=== PATIENT | male | born 1970 | race Caucasian/White ===

== ENCOUNTER 2016-11-19 12:04 | Emergency (ER) | payer BC ==
[2016-11-19 12:16] VITALS: BP 144/99
--- NOTE | 2016-11-19 12:20 | EDM.PDOC ---
ED HISTORY OF PRESENT ILLNESS - General Chief Complaint: Chest Pain Stated Complaint: CHEST PAIN Time Seen by Provider: 11/19/16 12:20 Source of Information: Reports: Patient - History of Present Illness INITIAL COMMENTS - FREE TEXT/NARRATIVE: Patient reports having substernal/left chest pain x2-3 days. Reports this is worse when he takes a deep breath, hasn't noted anything to help it. Denies associated N/V or diaphoresis, did have 1 episode of diarrhea this am. Denies change in physical activity, he does not lift heavy objects as he has history of back surgery. - Related Data Allergies/ADRs: Allergies Allergy/AdvReac Type Severity Reaction Status Date / Time Penicillins Allergy Hives Verified 11/19/16 12:16 Home Meds: Home Meds Albuterol [IJD: Albuterol HFA] 1 puff INH ASDIRECTED PRN 08/16/16 [History] Past Medical History HEENT History: Reports: Other (see below) Other HEENT History: Dental complaints Cardiovascular History: Reports: Hypertension Respiratory History: Reports: Asthma Musculoskeletal History: Reports: Back pain, chronic - Past Surgical History Musculoskeletal Surgical History: Reports: Other (see below) Other Musculoskeletal Surgeries/Procedures:: Right Knee Laser Surgery, "tore my knee cap off my left knee when I was 16 and had it melissa redone". having back surgery 09/01/16 in [place] Social & Family History - Family History : Reports: Renal disease/insufficiency - Tobacco Use Smoking Status *Q: Current Every Day Smoker Years of Tobacco use: 32 Packs/Tins Daily: 1 - Caffeine Use Caffeine Use: Reports: Coffee, Soda, Tea - Alcohol Use Days Per Week of Alcohol Use: 4 Number of Drinks Per Day: 8 Total Drinks Per Week: 32 - Recreational Drug Use Recreational Drug Use: Yes Drug Use in Last 12 Months: Yes Recreational Drug Type: Reports: Marijuana/Hashish Recreational Drug Use Frequency: Binges ED ROS GENERAL - Review of Systems Review Of Systems: See Below Constitutional: Denies: fever, chills, weakness, fatigue, diaphoresis Respiratory: Reports: Cough, Sputum. Denies: Shortness of Breath, Wheezing, Pleuritic Chest Pain, Hemoptysis Cardiovascular: Reports: Chest pain, Blood pressure problem, Dyspnea on exertion. Denies: Edema, Lightheadedness, Orthopnea, Palpitations, Syncope GI/Abdominal: Reports: Diarrhea. Denies: Abdominal pain, Decreased appetite, Nausea, Vomiting : Reports: no symptoms Musculoskeletal: Reports: other (chest wall pain) Skin: Reports: no symptoms Neurological: Reports: No Symptoms ED EXAM, GENERAL - Physical Exam Exam: See Below Exam Limited By: No limitations General Appearance: alert, WD/WN, no apparent distress Ears: normal external exam, normal canal (Excess cerumen), normal TMs Throat/Mouth: Normal inspection, Normal oropharynx Respiratory/Chest: no respiratory distress, decreased breath sounds (Bilateral bases), other (Chest wall tenderness to left mid-chest) Cardiovascular: normal peripheral pulses, regular rate, rhythm, no murmur GI/Abdominal: normal bowel sounds, soft, non tender Psychiatric: normal affect, normal mood Skin Exam: Warm, Dry, Intact, Normal color EKG INTERPRETATION EKG Date: 11/19/16 Time: 12:18 Rhythm: NSR P-wave: present EKG Interpretation Comments: Boderline LVH, mild ST depression in leads II/III/aVF. Early repolarization patter. Reviewed with Dr Garcia Course - Vital Signs Last Recorded V/S: Last Vital Signs Temp 98.5 F 11/19/16 12:15 Pulse 86 11/19/16 12:15 Resp 12 11/19/16 12:15 BP 144/99 H 11/19/16 12:15 Pulse Ox 95 11/19/16 12:15 - Orders/Labs/Meds Orders: Active Orders 24 hr Category Date Time Status EKG 12 Lead [EKG Documentation Completion] [RC] STAT Care 11/19/16 12:16 Active EKG 12 Lead [EKG Documentation Completion] [RC] STAT Care 11/19/16 15:30 Active CXR [Chest 2V] [CR] Stat Exams 11/19/16 12:48 Taken Labs: Laboratory Tests 11/19/16 11/19/16 11/19/16 Range/Units 12:20 12:20 12:20 WBC 7.13 (4.23-9.07) K/mm3 RBC 5.36 (4.63-6.08) M/mm3 Hgb 16.2 (13.7-17.5) gm/L Hct 46.7 (40.1-51.0) % MCV 87.1 (79.0-92.2) fl MCH 30.2 (25.7-32.2) pg MCHC 34.7 (32.2-35.5) g/dl RDW Std Deviation 42.8 (35.1-43.9) fL Plt Count 222 (163-337) K/mm3 MPV 10.5 (9.4-12.3) fl Neutrophils % (Manual) 69 H (40-60) % Band Neutrophils % 0 (0-10) % Lymphocytes % (Manual) 27 (20-40) % Atypical Lymphs % 0 % Monocytes % (Manual) 2 (2-10) % Eosinophils % (Manual) 2 (0.8-7.0) % Basophils % (Manual) 0 L (0.2-1.2) Platelet Estimate Adequate RBC Morph Comment Normal PT (8.0-13.0) SECONDS INR APTT (22-36) SECONDS Sodium 141 (136-145) mEq/L Potassium 3.6 (3.5-5.1) mEq/L Chloride 105 (98-107) mEq/L Carbon Dioxide 23 (21-32) mEq/L Anion Gap 16.6 H (5-15) BUN 16 (7-18) mg/dL Creatinine 1.0 (0.7-1.3) mg/dL Est Cr Clr Drug Dosing 101.74 mL/min Estimated GFR (MDRD) > 60 (>60) mL/min BUN/Creatinine Ratio 16.0 (14-18) Glucose 141 H (74-106) mg/dL Calcium 8.7 (8.5-10.1) mg/dL Magnesium 1.6 L (1.8-2.4) mg/dl Total Bilirubin 0.3 (0.2-1.0) mg/dL AST 17 (15-37) U/L ALT 28 (16-63) U/L Alkaline Phosphatase 69 (46-116) U/L Troponin I < 0.017 (0.00-0.056) ng/mL Total Protein 7.1 (6.4-8.2) g/dl Albumin 3.9 (3.4-5.0) g/dl Globulin 3.2 gm/dL Albumin/Globulin Ratio 1.2 (1-2) 11/19/16 11/19/16 Range/Units 12:20 15:40 WBC (4.23-9.07) K/mm3 RBC (4.63-6.08) M/mm3 Hgb (13.7-17.5) gm/L Hct (40.1-51.0) % MCV (79.0-92.2) fl MCH (25.7-32.2) pg MCHC (32.2-35.5) g/dl RDW Std Deviation (35.1-43.9) fL Plt Count (163-337) K/mm3 MPV (9.4-12.3) fl Neutrophils % (Manual) (40-60) % Band Neutrophils % (0-10) % Lymphocytes % (Manual) (20-40) % Atypical Lymphs % % Monocytes % (Manual) (2-10) % Eosinophils % (Manual) (0.8-7.0) % Basophils % (Manual) (0.2-1.2) Platelet Estimate RBC Morph Comment PT 9.9 (8.0-13.0) SECONDS INR 0.91 APTT 27 (22-36) SECONDS Sodium (136-145) mEq/L Potassium (3.5-5.1) mEq/L Chloride (98-107) mEq/L Carbon Dioxide (21-32) mEq/L Anion Gap (5-15) BUN (7-18) mg/dL Creatinine (0.7-1.3) mg/dL Est Cr Clr Drug Dosing mL/min Estimated GFR (MDRD) (>60) mL/min BUN/Creatinine Ratio (14-18) Glucose (74-106) mg/dL Calcium (8.5-10.1) mg/dL Magnesium (1.8-2.4) mg/dl Total Bilirubin (0.2-1.0) mg/dL AST (15-37) U/L ALT (16-63) U/L Alkaline Phosphatase (46-116) U/L Troponin I < 0.017 (0.00-0.056) ng/mL Total Protein (6.4-8.2) g/dl Albumin (3.4-5.0) g/dl Globulin gm/dL Albumin/Globulin Ratio (1-2) Meds: Medications Discontinued Medications Generic Name Dose Route Start Last Admin Trade Name Freq PRN Reason Stop Dose Admin Aspirin 324 mg 11/19/16 12:35 11/19/16 12:48 Aspirin PO 11/19/16 12:36 324 mg ONETIME ONE Administration Al Hydroxide/Mg Hydroxide 30 0 ml 11/19/16 13:25 11/19/16 13:48 ml/ Lidocaine HCl 15 ml PO 11/19/16 13:26 45 ml ONETIME ONE Administration Hydromorphone HCl 0.5 mg 11/19/16 12:35 11/19/16 12:48 Dilaudid IVPUSH 11/19/16 12:36 0.5 mg ONETIME ONE Administration Ketorolac Tromethamine 30 mg 11/19/16 14:52 11/19/16 15:00 Toradol IVPUSH 11/19/16 14:53 30 mg ONETIME ONE Administration - Radiology Interpretation Free Text/Narrative:: Patient does have simultaneous heartburn (worsening of chronic condition), musculoskeletal pain and reports 'pressure'. Troponin normal at 1220, EKG with ST depression in II/III/AVF was reviewed with Dr Garcia. - Re-Assessments/Exams Free Text/Narrative Re-Assessment/Exam: Repeat Troponin and EKG are normal. Ibuprofen as needed with food for chest wall pain and trial prevacid daily for reflux symptoms. Will discharge home, he is to follow-up with PCP next week or certainly return to ER if needed. 11/19/16 16:31 Departure - Departure Time of Disposition: 16:29 Disposition: Home, Self-Care 01 Condition: good Clinical Impression: Atypical chest pain Forms: ED Department Discharge Additional Instructions: Ibuprofen (with food) 400-600mg every 6 hours as needed Prevacid daily before breakfast for heartburn Schedule follow-up with Saige Aguilar [phone] next week or return to ER if needed. - My Orders Last 24 Hours: My Active Orders 11/19/16 12:16 EKG 12 Lead [EKG Documentation Completion] [RC] STAT 11/19/16 12:48 CXR [Chest 2V] [CR] Stat 11/19/16 15:30 EKG 12 Lead [EKG Documentation Completion] [RC] STAT - Assessment/Plan Last 24 Hours: My Active Orders 11/19/16 12:16 EKG 12 Lead [EKG Documentation Completion] [RC] STAT 11/19/16 12:48 CXR [Chest 2V] [CR] Stat 11/19/16 15:30 EKG 12 Lead [EKG Documentation Completion] [RC] STAT
[2016-11-19] MEDS ORDERED: Aspirin 81 MG Tab.Chew PO ONE (12:35)
[2016-11-19] MEDS ORDERED: HYDROmorphone 0.5 MG/0.5 ML Syringe IVPUSH ONE (12:35)
[2016-11-19] MEDS ORDERED: Alum Hydrox/Mag Hydrox/Simeth 30 ML, Lidocaine 2% 15 ML PO ONE ×2 (13:25)
[2016-11-19] MEDS ORDERED: Ketorolac 30 MG/ML SDV IVPUSH ONE (14:52)
--- NOTE | 2016-11-22 08:01 | CR ---
Chest: Two views of the chest were obtained. Comparison: Previous chest x-ray of 08/25/16. Heart size and mediastinum are normal. Lungs are clear. Bony structures are unremarkable. Impression: 1. Nothing acute is identified on two-view chest x-ray. Diagnostic code #1
== END 2016-11-19 16:52 | disposition home or self-care (01) ==
LOC: JD.ED 12:04
DX: R07.89 Other chest pain (principal); I10 Essential (primary) hypertension; J45.909 Unspecified asthma, uncomplicated; F17.210 Nicotine dependence, cigarettes, uncomplicated; Z88.0 Allergy status to penicillin; Z98.890 Other specified postprocedural states
CPT/HCPCS: 36415; 71020; 80053; 83735; 84484; 85025; 85610; 85730; 93005; 96374; 96375; 99285; A9270; J1170; J1885; 99284

== ENCOUNTER 2017-05-19 08:39 | Emergency (ER) | payer BC ==
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
[2017-05-19 09:24] VITALS: BP 140/108
== END 2017-05-19 09:20 | disposition home or self-care (01) ==
LOC: JD.ED 08:39
DX: M46.1 Sacroiliitis, not elsewhere classified (principal); M54.41 Lumbago with sciatica, right side; J45.901 Unspecified asthma with (acute) exacerbation; I10 Essential (primary) hypertension; F17.210 Nicotine dependence, cigarettes, uncomplicated; Z88.0 Allergy status to penicillin
CPT/HCPCS: 99283; 99284

== ENCOUNTER 2017-06-22 08:13 | Emergency (ER) | payer BC ==
[2017-06-22 08:23] VITALS: BP 143/108
[2017-06-22] MEDS ORDERED: Sodium Chloride 0.9% 1,000 ML IV ONE (08:35)
[2017-06-22] MEDS ORDERED: Ondansetron 4 MG/2 ML SDV IVPUSH ONE (09:21)
[2017-06-22] MEDS ORDERED: HYDROmorphone 1 MG/ML Syringe IM ONE (09:21)
[2017-06-22] MEDS ORDERED: HYDROmorphone 1 MG/ML Syringe IVPUSH ONE (09:32)
--- NOTE | 2017-06-22 10:54 | EDM.PDOC ---
ED HPI GENERAL MEDICAL PROBLEM - General Chief Complaint: Gastrointestinal Problem Stated Complaint: VOMITING/DIARRHEA Time Seen by Provider: 06/22/17 09:16 Source of Information: Reports: Patient History Limitations: Reports: No Limitations - History of Present Illness INITIAL COMMENTS - FREE TEXT/NARRATIVE: The patient presents with diarrhea, nausea and vomiting for about 3 days. He also has some abdominal cramps. He has chronic low back pain and that is made worse by the current symptoms. He has no fever or chills. He does not think he ate any bad food and he has not been around anyone who is sick. He has no chest pain or shortness of breath. Duration: Day(s): (3) Location: Reports: Abdomen, Back Quality: Reports: Sharp Severity: Moderate Improves with: Reports: None Worsens with: Reports: None Associated Symptoms: Reports: Fever/Chills, Nausea/Vomiting. Denies: Chest Pain , Cough, Shortness of Breath Back Pain Score (Numeric/FACES): 6 - Related Data Allergies Allergy/AdvReac Type Severity Reaction Status Date / Time Penicillins Allergy Hives Verified 06/22/17 08:33 Home Meds: Home Meds Albuterol Sulfate [Proair Hfa] 06/22/17 [History] Hydrocodone/Acetaminophen [Hydrocodon-Acetaminophen 5-325] 1 - 2 each PO Q6HR PRN #20 tablet 06/22/17 [Rx] Lisinopril 10 mg PO DAILY 06/22/17 [History] Ondansetron [Zofran ODT] 4 mg PO Q6H PRN #20 tab.dis 06/22/17 [Rx] Sulfamethoxazole/Trimethoprim [Bactrim Ds Tablet] 1 each PO BID #6 tablet [Rx] Past Medical History - Past Health History Medical/Surgical History: Denies Medical/Surgical History HEENT History: Reports: Other (See Below) Other HEENT History: Dental complaints Cardiovascular History: Reports: Hypertension Respiratory History: Reports: Asthma Musculoskeletal History: Reports: Back Pain, Chronic - Past Surgical History Musculoskeletal Surgical History: Reports: Other (See Below) Other Musculoskeletal Surgeries/Procedures:: back surgery 09/01/17, knee surgery Social & Family History - Family History : Reports: Renal Disease/Insufficiency - Tobacco Use Smoking Status *Q: Unknown Ever Smoked Years of Tobacco use: 32 Packs/Tins Daily: 0.5 Second Hand Smoke Exposure: No - Caffeine Use Caffeine Use: Reports: Coffee, Tea - Alcohol Use Days Per Week of Alcohol Use: 4 Number of Drinks Per Day: 8 Total Drinks Per Week: 32 - Recreational Drug Use Recreational Drug Use: Yes Drug Use in Last 12 Months: Yes Recreational Drug Type: Reports: Marijuana/Hashish Recreational Drug Use Frequency: Rarely - Living Situation & Occupation Living situation: Reports: Single, with Significant Other Occupation: Employed ED ROS GENERAL - Review of Systems Review Of Systems: See Below Constitutional: Reports: No Symptoms HEENT: Reports: No Symptoms Respiratory: Reports: No Symptoms Cardiovascular: Reports: No Symptoms Endocrine: Reports: No Symptoms GI/Abdominal: Reports: Abdominal Pain, Diarrhea, Nausea, Vomiting : Reports: No Symptoms Musculoskeletal: Reports: No Symptoms ED EXAM, GI/ABD - Physical Exam Exam: See Below Exam Limited By: No Limitations General Appearance: Alert, No Apparent Distress Ears: Normal External Exam Nose: Normal Inspection Head: Atraumatic, Normocephalic Neck: Normal Inspection Respiratory/Chest: No Respiratory Distress, Lungs Clear, Normal Breath Sounds Cardiovascular: Regular Rate, Rhythm, No Edema, No Murmur GI/Abdominal Exam: Soft, Non-Tender, No Organomegaly Back Exam: Normal Inspection Course - Vital Signs Last Recorded V/S: Last Vital Signs Temp 98.2 F 06/22/17 08:18 Pulse 87 06/22/17 08:18 Resp 18 06/22/17 08:18 BP 143/108 H 06/22/17 08:18 Pulse Ox 100 06/22/17 08:18 Orthostatic Blood Pressure [ 123/90 Standing] Orthostatic Blood Pressure [ 143/108 Supine] - Orders/Labs/Meds Labs: Laboratory Tests 06/22/17 06/22/17 06/22/17 Range/Units 08:29 08:29 09:58 WBC 5.93 (4.23-9.07) K/mm3 RBC 5.77 (4.63-6.08) M/mm3 Hgb 17.9 H (13.7-17.5) gm/L Hct 49.1 (40.1-51.0) % MCV 85.1 (79.0-92.2) fl MCH 31.0 (25.7-32.2) pg MCHC 36.5 H (32.2-35.5) g/dl RDW Std Deviation 41.1 (35.1-43.9) fL Plt Count 245 (163-337) K/mm3 MPV 10.1 (9.4-12.3) fl Neut % (Auto) 58.3 (34.0-67.9) % Lymph % (Auto) 29.7 (21.8-53.1) % [place] % (Auto) 8.6 (5.3-12.2) % Eos % (Auto) 3.0 (0.8-7.0) Baso % (Auto) 0.2 (0.1-1.2) % Neut # (Auto) 3.46 (1.78-5.38) K/mm3 Lymph # (Auto) 1.76 (1.32-3.57) K/mm3 [place] # (Auto) 0.51 (0.30-0.82) K/mm3 Eos # (Auto) 0.18 (0.04-0.54) K/mm3 Baso # (Auto) 0.01 (0.01-0.08) K/mm3 Sodium 136 (136-145) mEq/L Potassium 4.0 (3.5-5.1) mEq/L Chloride 103 (98-107) mEq/L Carbon Dioxide 20 L (21-32) mEq/L Anion Gap 17.0 H (5-15) BUN 22 H (7-18) mg/dL Creatinine 1.0 (0.7-1.3) mg/dL Est Cr Clr Drug Dosing 98.31 mL/min Estimated GFR (MDRD) > 60 (>60) mL/min BUN/Creatinine Ratio 22.0 H (14-18) Glucose 109 H (74-106) mg/dL Calcium 9.2 (8.5-10.1) mg/dL Total Bilirubin 0.8 (0.2-1.0) mg/dL AST 16 (15-37) U/L ALT 20 (16-63) U/L Alkaline Phosphatase 55 (46-116) U/L Total Protein 7.5 (6.4-8.2) g/dl Albumin 4.2 (3.4-5.0) g/dl Globulin 3.3 gm/dL Albumin/Globulin Ratio 1.3 (1-2) Urine Color Yellow (Yellow) Urine Appearance Clear (Clear) Urine pH 7.0 (5.0-8.0) Ur Specific [place] 1.025 (1.005-1.030) Urine Protein Negative (Negative) Urine Glucose (UA) Negative (Negative) Urine Ketones Negative (Negative) Urine Occult Blood Negative (Negative) Urine Nitrite Negative (Negative) Urine Bilirubin Negative (Negative) Urine Urobilinogen 0.2 (0.2-1.0) Ur Leukocyte Esterase Negative (Negative) Urine RBC Not seen (0-5) /hpf Urine WBC Not seen (0-5) /hpf Ur Epithelial Cells Not seen (0-5) /hpf Urine Bacteria Not seen (FEW) /hpf Urine Mucus Not seen (FEW) /hpf Meds: Medications Discontinued Medications Generic Name Dose Route Start Last Admin Trade Name Jimboq PRN Reason Stop Dose Admin Hydromorphone HCl 1 mg 06/22/17 09:21 Dilaudid IM 06/22/17 09:22 ONETIME ONE Hydromorphone HCl 1 mg 06/22/17 09:32 06/22/17 09:33 Dilaudid IVPUSH 06/22/17 09:33 1 mg ONETIME ONE Administration Sodium Chloride 1,000 mls @ 999 mls/hr 06/22/17 08:35 06/22/17 09:30 Normal Saline IV 06/22/17 09:35 999 mls/hr ONETIME ONE Administration Ondansetron HCl 4 mg 06/22/17 09:21 06/22/17 09:29 Zofran IVPUSH 06/22/17 09:22 4 mg ONETIME ONE Administration - Re-Assessments/Exams Free Text/Narrative Re-Assessment/Exam: 06/22/17 10:51 I ordered an IV NS 1L bolus, zofran 4mg IV, dilaudid 1mg IV, labs, and UA. His CBC and CMP look good. His UA is negative. He feels better. I feel this may be infectious diarrhea. I will get him on bactrim for 3 days and something for nausea or vomiting. Departure - Departure Time of Disposition: 10:55 Disposition: Home, Self-Care 01 Condition: Good Clinical Impression: Vomiting, Diarrhea Back pain Qualifiers: Back pain location: low back pain Chronicity: chronic Back pain laterality: bilateral Sciatica presence: without sciatica Qualified Code(s): M54.5 - Low back pain; G89.29 - Other chronic pain; G89.29 - Other chronic pain - Discharge Information Prescriptions: Hydrocodone/Acetaminophen [Hydrocodon-Acetaminophen 5-325] 1 - 2 each PO Q6HR PRN #20 tablet PRN Reason: Pain Ondansetron [Zofran ODT] 4 mg PO Q6H PRN #20 tab.dis PRN Reason: Nausea/Vomiting Sulfamethoxazole/Trimethoprim [Bactrim Ds Tablet] 1 each PO BID #6 tablet Referrals: Saige Aguilar, MEDIA SALES REPRESENTATIVE [Primary Care Provider] - 1 Week Additional Instructions: Take the zofran 1 pill every 6 hours as needed for nausea or vomiting. Take the hydrocodone as needed for pain. Take the bactrim 2 times per day for 3 days. Drink plenty of fluids and get some rest. Please return if you are worse.
== END 2017-06-22 11:18 | disposition home or self-care (01) ==
LOC: JD.ED 08:13
DX: R11.10 Vomiting, unspecified (principal); R19.7 Diarrhea, unspecified; M54.5 Low back pain; G89.29 Other chronic pain; I10 Essential (primary) hypertension; J45.909 Unspecified asthma, uncomplicated; Z79.899 Other long term (current) drug therapy; Z88.0 Allergy status to penicillin
CPT/HCPCS: 36415; 80053; 81001; 85025; 96374; 96375; 99283; J1170; J2405; J7040; 99284

== ENCOUNTER 2017-09-05 14:00 | Emergency (ER) | payer BC ==
[2017-09-05 15:53] VITALS: BP 157/100
--- NOTE | 2017-09-05 16:33 | EDM.PDOC ---
ED HPI GENERAL MEDICAL PROBLEM - General Chief Complaint: Back Pain or Injury Stated Complaint: BACK PAIN Time Seen by Provider: 09/05/17 16:33 Source of Information: Reports: Patient History Limitations: Reports: No Limitations - History of Present Illness INITIAL COMMENTS - FREE TEXT/NARRATIVE: 47-year-old male presents to the ED with acute onset of severe low back pain. Patient states he had lumbar spine fusion carried out by Dr. Spear September 01, 2016. [id number] within a day and a half because he was doing so well. He had put up with sciatica pain for about 11 years before deciding to pursue the surgery. Done very well postoperatively. Today however while getting up out of his recliner chair he felt a sudden pop pull in his lower back with both legs going numb and tingling for a period of time. Since then time he has persistent low back pain about lumbar 34 level worse perhaps in the right side as compared to the left. And right leg pain numbness and tingling. He states he's came walk nearly fully erect. He is able to get to the toilet and has not lost control of his bowel or bladder. He believes he had to level fusion but is not sure which levels. Onset: Today Onset Date: 09/05/17 Onset Time: 09:30 Duration: Hour(s): Location: Reports: Back (Lumbar spine) Quality: Reports: Ache, Throbbing, Other (Radicular pain right leg) Severity: Moderate Improves with: Reports: Rest (Lying on his right side in the position) Worsens with: Reports: Movement Context: Reports: Other (Injury occurred just simply getting up out of his easy chair this morning.). Denies: Activity, Exercise, Lifting, Sick Contact, Trauma Associated Symptoms: Reports: Other (Radiculopathy right leg) Treatments CATERING DIRECTOR: Reports: Acetaminophen Lower Back Pain Score (Numeric/FACES): 8 - Related Data Allergies Allergy/AdvReac Type Severity Reaction Status Date / Time Penicillins Allergy Hives Verified 06/22/17 08:33 Home Meds: Home Meds Albuterol Sulfate [Proair Hfa] 1 puff INH ASDIRECTED 06/22/17 [History] Lisinopril 10 mg PO DAILY 06/22/17 [History] Ondansetron [Zofran ODT] 4 mg PO Q6H PRN #20 tab.dis 06/22/17 [Rx] Prednisone [IJD: predniSONE] 20 mg PO BID #10 tab 09/05/17 [Rx] oxyCODONE HCl/Acetaminophen [Percocet 5-325 mg Tablet] 1 - 2 each PO Q4H PRN # 30 tablet 09/05/17 [Rx] Past Medical History - Past Health History Medical/Surgical History: Denies Medical/Surgical History HEENT History: Reports: Other (See Below) Other HEENT History: Dental complaints Cardiovascular History: Reports: Hypertension Respiratory History: Reports: Asthma Musculoskeletal History: Reports: Back Pain, Chronic (Head L-spine fusion carried out by Dr. Spear at [facility] September 01, 2016 with good result.) - Past Surgical History Musculoskeletal Surgical History: Reports: Other (See Below) Other Musculoskeletal Surgeries/Procedures:: back surgery 09/01/16. , knee surgery Social & Family History - Family History : Reports: Renal Disease/Insufficiency - Tobacco Use Smoking Status *Q: Current Every Day Smoker Years of Tobacco use: 34 Packs/Tins Daily: 1 Second Hand Smoke Exposure: No - Caffeine Use Caffeine Use: Reports: Coffee, Tea - Alcohol Use Days Per Week of Alcohol Use: 4 Number of Drinks Per Day: 8 Total Drinks Per Week: 32 - Recreational Drug Use Recreational Drug Use: No Drug Use in Last 12 Months: Yes Recreational Drug Type: Reports: Marijuana/Hashish Recreational Drug Use Frequency: Rarely - Living Situation & Occupation Living situation: Reports: Single, with Significant Other Occupation: Employed ED ROS GENERAL - Review of Systems Review Of Systems: See Below Constitutional: Denies: Fever, Chills, Malaise, Weakness, Fatigue, Weight Loss HEENT: Reports: No Symptoms Respiratory: Reports: Cough Cardiovascular: Reports: No Symptoms (Bit of a smoker's cough.) Endocrine: Reports: No Symptoms GI/Abdominal: Reports: No Symptoms : Reports: No Symptoms Musculoskeletal: Reports: Back Pain Skin: Reports: No Symptoms (C history of present illness) Neurological: Reports: Numbness, Paresthesia (Right leg right leg down to his ankle.), Tingling, Difficulty Walking Psychiatric: Reports: No Symptoms Hematologic/Lymphatic: Reports: No Symptoms Immunologic: Reports: No Symptoms ED EXAM,LOWER BACK PAIN/INJURY - Physical Exam Exam: See Below Exam Limited By: No Limitations General Appearance: Alert, WD/WN, Mild Distress Respiratory/Chest: No Respiratory Distress, Lungs Clear, Normal Breath Sounds, No Accessory Muscle Use Cardiovascular: Normal Peripheral Pulses, Regular Rate, Rhythm, No Edema, No Gallop, No Rub Back Exam: Other (Has a well well-healed midline lumbar scar. He has pain bilateral paraspinal musculature adjacent to L3-4 and 5 vertebra. Mild overlying muscle spasm.) Extremities: Normal Inspection, Limited Range of Motion (Right leg.). No: Normal Range of Motion Neurological: Alert, Normal Mood/Affect, Normal Dorsiflexion, CN II-XII Intact Course - Vital Signs Last Recorded V/S: Last Vital Signs Temp 36.4 C 09/05/17 15:52 Pulse 76 09/05/17 15:52 Resp 20 09/05/17 15:52 BP 157/100 H 09/05/17 15:52 Pulse Ox 100 09/05/17 15:52 - Orders/Labs/Meds Orders: Active Orders 24 hr Category Date Time Status Peripheral IV Care [RC] . DIRECTED Care 09/05/17 16:38 Active Peripheral IV Insertion Adult [OM.PC] Stat Oth 09/05/17 16:38 Ordered Meds: Medications Discontinued Medications Generic Name Dose Route Start Last Admin Trade Name Freq PRN Reason Stop Dose Admin Hydromorphone HCl 1 mg 09/05/17 16:38 09/05/17 17:03 Dilaudid IVPUSH 09/05/17 16:39 1 mg ONETIME ONE Administration Hydromorphone HCl 1 mg 09/05/17 18:08 09/05/17 18:32 Dilaudid IVPUSH 09/05/17 18:09 1 mg ONETIME ONE Administration Ketorolac Tromethamine 30 mg 09/05/17 16:45 09/05/17 17:02 Toradol IVPUSH 30 mg ONETIME SAMANTHA Administration Methylprednisolone Sodium Succinate 125 mg 09/05/17 18:08 09/05/17 18:33 Solu-Medrol IVPUSH 09/05/17 18:09 125 mg ONETIME ONE Administration Metoclopramide HCl 10 mg 09/05/17 16:38 09/05/17 17:01 Reglan IVPUSH 09/05/17 16:39 10 mg ONETIME ONE Administration Sodium Chloride 10 ml 09/05/17 16:38 09/05/17 17:04 Saline Flush FLUSH 10 ml ASDIRECTED PRN Administration Keep Vein Open - Radiology Interpretation Free Text/Narrative:: 47-year-old male presents to the ED with acute onset of low back pain with now right sided leg radiculopathy. Patient has chronic low back pain and had a fixation of L5 on S1 due to spondylolisthesis August 24, [address] Spear. He states he's been great since that time. Simply getting up out of the easy chair this morning he felt a sudden pop in his lower back and tremendous pain with bilateral weakness numbness and tingling in his lower extremities. Subsequently pain is settled in his back and he still has right leg radiculopathy. The left leg seems to be back to normal. He can walk but he is very slow in pace. Examination shows paraspinal muscle tenderness adjacent to the lumbar spine particularly L3-L4 bilaterally. Well-healed midline surgical scar. Straight leg raising on the left is negative at 60 on the right is positive at 35. Just there is some nerve root irritation. Plan he'll be treated with intravenous Dilaudid 1 mg with Reglan 10 mg and Toradol 30 mg IV. Plan will be to get a CT of his lumbar spine done. - Re-Assessments/Exams Free Text/Narrative Re-Assessment/Exam: 09/05/17 18:00: CT of the lumbar spine reveals no fractures. There is a broad- based disc protrusion at T12-L1 which apparently is stable from previous MRI. He has pedicle screws embedded in L5 and S1 due to a grade 1 spondylolisthesis. The disc space between L5 and S1 is severely diminished. There is broad-based disc bulge posteriorly at L4-L5 and at L2-L3 which may be irritating the right nerve root as it exits between L4 and L5. Plan patient will b given another dose of Dilaudid 1 mg IV for further pain relief. He'll be placed on Percocet 5/3/25 milligram tablets one or 2 every 4-6 hours needed for pain relief. Placed on prednisone 20 mg twice a day for 5 days after receiving a dose of Solu-Medrol 125 mg IV in the ED. He will use Aleve 2 tablets every 8 hours to reduce inflammation and pain. Note given to excuse him from the work place for the next week. He will follow-up with his personal care physician if not markedly improved in 5 days time 09/05/17 21:15 Departure - Departure Time of Disposition: 18:09 Disposition: Home, Self-Care 01 Condition: Fair Clinical Impression: Acute myofascial strain of lumbar region Qualifiers: Encounter type: initial encounter Qualified Code(s): S39.012A - Strain of muscle, fascia and tendon of lower back, initial encounter - Discharge Information Prescriptions: oxyCODONE HCl/Acetaminophen [Percocet 5-325 mg Tablet] 1 - 2 each PO Q4H PRN # 30 tablet PRN Reason: pain relief. Prednisone [IJD: predniSONE] 20 mg PO BID #10 tab Instructions: Back Pain, Adult Referrals: Saige Aguilar PHARMACY INFORMATICIST [Primary Care Provider] - Forms: ED Department Discharge, ED Return to Work/School Form Additional Instructions: Evaluation the emergency room today in regards to acute onset of severe low back pain while getting up out of easy chair today. This caused transient numbness in both legs and then sciatica pain radiating down the right leg subsequently. So she did diffuse low back pain. Previous fusion of L5 on S1 one year ago because of spondylolisthesis. His main slippage of the bone atop the other. CT scan of your lumbar spine was therefore carried out. It reveals the hardware to still be in adequate position and no fractures occurred. There is evidence of posterior disc bulge at L4-L5 and at L to L3 levels. The openings were the nerves, out still have enough room although the disc may be touching the nerve on the right side causing your current pain. Therefore treatment is time for the disc to reabsorb. Suggest minimal lifting pushing or pulling for the next week. Continue Aleve 2 tablets every 8 hours for reduction of inflammation and some pain relief. Percocet 5/3/25 milligram tablets one or 2 every 4-6 hours for pain relief as needed. Prednisone 20 mg with breakfast and supper for the next 5 days to reduce inflammation and help the disc reabsorb. If you are not markedly improved in 10-12 days time that you need to follow-up with your personal doctor or back surgeon to have an MRI of your back done. This would clarify whether or not the disc is actually ruptured and whether or not surgical repair would be necessary. - My Orders Last 24 Hours: My Active Orders 09/05/17 16:38 Peripheral IV Care [RC] . DIRECTED Peripheral IV Insertion Adult [OM.PC] Stat - Assessment/Plan Last 24 Hours: My Active Orders 09/05/17 16:38 Peripheral IV Care [RC] . DIRECTED Peripheral IV Insertion Adult [OM.PC] Stat
[2017-09-05] MEDS ORDERED: HYDROmorphone 1 MG/ML Syringe IVPUSH ONE ×2 (16:38→18:08)
[2017-09-05] MEDS ORDERED: Metoclopramide 10 MG/2 ML SDV IVPUSH ONE (16:38)
[2017-09-05] MEDS ORDERED: Sodium Chloride 0.9% 10 ML Syringe FLUSH PRN (16:38)
[2017-09-05] MEDS ORDERED: Ketorolac 30 MG/ML SDV IVPUSH SCH (16:45)
[2017-09-05] MEDS ORDERED: methylPREDNISolone Sodium Succinate 125 MG/2 ML SDV IVPUSH ONE (18:08)
--- NOTE | 2017-09-05 18:21 | CT ---
CT lumbar spine Technique: Multiple axial sections were obtained from the mid T11 level inferiorly through the L5-S1 disc. Reconstructed sagittal and coronal images were reviewed. Comparison: Prior MRI lumbar spine exam dated 04/05/17. Findings: Spondylolisthesis is seen at L5-S1 by approximately 1 cm. This is stable from prior study and is due to bilateral spondylolytic defects. Transpedicle screws are identified within L5 and S1. These findings are stable from prior MRI. There is a broad-based disc protrusion at T12-L1 to the right side which is stable from prior MRI. Other discs shows minimal bulging. Posterior laminectomy is seen at L5-S1 and L4-5. Severe disc space narrowing is noted at L5-S1 with degenerative endplate sclerosis. No acute abnormality is seen. Impression: 1. L5-S1 level shows severe disc space narrowing and spondylolisthesis due to spondylolytic defects. Transpedicle screws are in place with posterior laminectomy. These findings are stable from prior exam. 2. Broad-based disc protrusion to the right side at T12-L1 which is stable from prior MRI. 3. Other less prominent degenerative change which is also stable. Nothing acute is seen from prior MRI. Diagnostic code #3
== END 2017-09-05 18:38 | disposition home or self-care (01) ==
LOC: JD.ED 14:00
DX: S39.012A Strain of muscle, fascia and tendon of lower back, initial encounter (principal); I10 Essential (primary) hypertension; F17.210 Nicotine dependence, cigarettes, uncomplicated; Z88.0 Allergy status to penicillin; Z79.899 Other long term (current) drug therapy; X50.1XXA Overexertion from prolonged static or awkward postures, initial encounter
CPT/HCPCS: 72131; 96374; 96375; 96376; 99284; J1170; J1885; J2765; J2930; J7050

== ENCOUNTER 2018-02-13 11:30 | Emergency (ER) | payer BC, OTHER ==
[2018-02-13] MEDS ORDERED: Sodium Chloride 0.9% 10 ML Syringe FLUSH PRN (12:26)
[2018-02-13] MEDS ORDERED: HYDROmorphone 0.5 MG/0.5 ML SYRINGE IVPUSH ONE ×2 (12:26→14:05)
[2018-02-13] MEDS ORDERED: Ketorolac 30 MG/ML SDV IVPUSH ONE (12:26)
[2018-02-13] MEDS ORDERED: Diazepam 5 MG Tab PO ONE (12:26)
--- NOTE | 2018-02-13 12:40 | EDM.PDOC ---
ED HPI GENERAL MEDICAL PROBLEM - General Chief Complaint: Back Pain or Injury Stated Complaint: BACK PAIN Time Seen by Provider: 02/13/18 12:07 Source of Information: Reports: Patient History Limitations: Reports: No Limitations - History of Present Illness INITIAL COMMENTS - FREE TEXT/NARRATIVE: 47-year-old male presents for evaluation and treatment of low back pain. Patient reports that he has chronic problems with his low back. Reports today that he stepped off a tractor wrong. Reports feeling a popping sensation in his low back. He is having pain across his low back greatest on the right side with radiation into the right leg, right buttocks and right groin. Reports the pain is an 8 or 9 out of 10 with lying down. Movement greatly worsens the pain.. He states that his right leg feels numb and tingly. No pain or numbness or tingling to the left side. States his is painful and difficult to walk due to the pain. He denies any fevers, chills, nausea, vomiting, urinary incontinence, stool incontinence or any saddle anesthesia. No treatments prior to arrival in the ER. Patient's primary care provider is Saige Aguilar. Reviewed the patient's record shows that he has been seen in ER for back pain prior. Last visit was in September. He was prescribed steroids and pain medication. He states he did not get much relief out of the steroids. He did follow up with a specialist in [place]. He states he had an epidural done in October but he did not get any relief from this. Patient has previously had back surgery in August 2016. States that he had a fusion in his low back. Lower Back Pain Score (Numeric/FACES): 8 - Related Data Allergies Allergy/AdvReac Type Severity Reaction Status Date / Time Penicillins Allergy Hives Verified 02/13/18 11:38 Home Meds: Home Meds Albuterol Sulfate [Proair Hfa] 1 puff INH ASDIRECTED 06/22/17 [History] Lisinopril 10 mg PO DAILY 06/22/17 [History] Acetaminophen/oxyCODONE [Percocet 325-5 MG] 1 tab PO Q4HR PRN #20 tab 02/13/18 [ Rx] Fluticasone Propionate [Flovent HFA] 1 puff INH DAILY 02/13/18 [History] Orphenadrine [Norflex] 100 mg PO BID PRN #20 tab.er 02/13/18 [Rx] Past Medical History - Past Health History Medical/Surgical History: Denies Medical/Surgical History HEENT History: Reports: Other (See Below) Other HEENT History: Dental complaints Cardiovascular History: Reports: Hypertension Respiratory History: Reports: Asthma Musculoskeletal History: Reports: Back Pain, Chronic, Fracture - Past Surgical History Musculoskeletal Surgical History: Reports: Other (See Below) Other Musculoskeletal Surgeries/Procedures:: back surgery 09/01/16. , knee surgery Social & Family History - Family History Family Medical History: Noncontributory : Reports: Renal Disease/Insufficiency - Tobacco Use Smoking Status *Q: Current Every Day Smoker Years of Tobacco use: 35 Packs/Tins Daily: 1 - Caffeine Use Caffeine Use: Reports: Coffee, Tea - Recreational Drug Use Recreational Drug Use: No - Living Situation & Occupation Living situation: Reports: Single, with Significant Other Occupation: Employed ED ROS GENERAL - Review of Systems Review Of Systems: See Below Constitutional: Denies: Fever, Chills GI/Abdominal: Denies: Nausea, Stool Incontinence, Vomiting : Denies: Incontinence Musculoskeletal: Reports: Back Pain (low back right sided into right buttocks, leg and groin) Neurological: Reports: Numbness (right leg), Tingling (right leg), Difficulty Walking, Other (no saddle anesthesia) ED EXAM,LOWER BACK PAIN/INJURY - Physical Exam Exam: See Below Exam Limited By: No Limitations General Appearance: Alert, WD/WN, Mild Distress, Thin Ears: Normal External Exam Nose: Normal Inspection Throat/Mouth: Normal Inspection, Normal Lips, Normal Voice, No Airway Compromise Neck: Normal Inspection, Full Range of Motion Respiratory/Chest: No Respiratory Distress, Lungs Clear, Normal Breath Sounds Cardiovascular: Normal Peripheral Pulses, Regular Rate, Rhythm, No Murmur Back Exam: Normal Inspection, Vertebral Tenderness (L1-L3), Other (scar to lumbar spin L3-L5 from previous surgery). No: Muscle Spasm Extremities: Normal Inspection Neurological: Alert, Normal Dorsiflexion, Normal Plantar Flexion, Difficulty Walking (slow, limping on the right gait). No: Straight Leg Raise (L), Straight Leg Raise (R) Psychiatric: Normal Affect, Normal Mood Skin Exam: Warm, Dry, Normal Color Course - Vital Signs Last Recorded V/S: Last Vital Signs Temp 98.9 F 02/13/18 11:35 Pulse 69 02/13/18 15:40 Resp 18 02/13/18 15:40 BP 113/73 02/13/18 15:40 Pulse Ox 95 02/13/18 15:40 - Orders/Labs/Meds Orders: Active Orders 24 hr Category Date Time Status Peripheral IV Care [RC] . DIRECTED Care 02/13/18 12:26 Active Peripheral IV Insertion Adult [OM.PC] Routine Oth 02/13/18 12:26 Ordered Meds: Medications Discontinued Medications Generic Name Dose Route Start Last Admin Trade Name Frecathleen PRN Reason Stop Dose Admin Diazepam 5 mg 02/13/18 12:26 02/13/18 12:37 Valium. PO 02/13/18 12:27 5 mg ONETIME ONE Administration Hydromorphone HCl 0.5 mg 02/13/18 12:26 02/13/18 12:37 Dilaudid IVPUSH 02/13/18 12:27 0.5 mg ONETIME ONE Administration Hydromorphone HCl 1 mg 02/13/18 14:05 02/13/18 14:24 Dilaudid IVPUSH 02/13/18 14:06 1 mg ONETIME ONE Administration Ketorolac Tromethamine 30 mg 02/13/18 12:26 02/13/18 12:37 Toradol IVPUSH 02/13/18 12:27 30 mg ONETIME ONE Administration Methylprednisolone Sodium Succinate 125 mg 02/13/18 14:06 02/13/18 14:23 Solu-Medrol IVPUSH 02/13/18 14:07 125 mg ONETIME ONE Administration Sodium Chloride 10 ml 02/13/18 12:26 02/13/18 12:38 Saline Flush FLUSH 10 ml ASDIRECTED PRN Administration Keep Vein Open - Re-Assessments/Exams Free Text/Narrative Re-Assessment/Exam: 02/13/18 14:16 Patient reports pain is still at a 6 out of 10. Solu-Medrol 125 and Dilaudid 1 mg IV ordered. 02/13/18 15:26 Patient reports that his pain at this point as a 4 out of 10. It is as baseline. He feels comfortable going home. I will prescribe him some Percocet as needed for pain and some Norflex for muscle relaxation. Discharge instructions as documented. Departure - Departure Time of Disposition: 15:27 Disposition: Home, Self-Care 01 Condition: Fair Clinical Impression: Back pain Qualifiers: Back pain location: low back pain Chronicity: chronic Back pain laterality: bilateral Sciatica presence: without sciatica Qualified Code(s): M54.5 - Low back pain - Discharge Information Prescriptions: Acetaminophen/oxyCODONE [Percocet 325-5 MG] 1 tab PO Q4HR PRN #20 tab PRN Reason: Pain Orphenadrine [Norflex] 100 mg PO BID PRN #20 tab.er PRN Reason: Muscle Spasm Instructions: Back Pain, Adult, [id number] Referrals: Saige Aguilar [employer] [Primary Care Provider] - Forms: ED Department Discharge Additional Instructions: You were given medication ER that can affect your ability to drive and operate machinery. Do not drive or operate machinery within 12 hours of taking prescription narcotic pain medication. [id number] ibuprofen as needed for pain. Do not take more than 3200 mg of ibuprofen from all sources in 1 day. Percocet 1-2 tab every 4-6 hours as needed for severe pain. Do not drive or operate machinery within 12 hours of taking Percocet. Percocet is habit-forming, take as few these as needed to control your pain. Norflex 1 tab twice a day as needed for muscle spasms here Recommend using ice or heat for additional pain relief. may also try topical products such as Icyhot or BenGay. Follow-up with primary care provider if your Symptoms have not improved much within one week. Please return to the ER if your symptoms change or worsen. - My Orders Last 24 Hours: My Active Orders 02/13/18 12:26 Peripheral IV Care [RC] . DIRECTED Peripheral IV Insertion Adult [OM.PC] Routine - Assessment/Plan Last 24 Hours: My Active Orders 02/13/18 12:26 Peripheral IV Care [RC] . DIRECTED Peripheral IV Insertion Adult [OM.PC] Routine
[2018-02-13] MEDS ORDERED: methylPREDNISolone Sodium Succinate 125 MG/2 ML SDV IVPUSH ONE (14:06)
[2018-02-13 16:17] VITALS: BP 113/73
== END 2018-02-13 15:45 | disposition home or self-care (01) ==
LOC: JD.ED 11:30
DX: M54.5 Low back pain (principal); I10 Essential (primary) hypertension; J45.909 Unspecified asthma, uncomplicated; F17.210 Nicotine dependence, cigarettes, uncomplicated; Z88.0 Allergy status to penicillin; Z79.899 Other long term (current) drug therapy
CPT/HCPCS: 96374; 96375; 96376; 99283; A9270; J1170; J1885; J2930; J7050; 99284

== ENCOUNTER 2018-04-20 09:35 | Emergency (ER) | payer SELFPAY ==
[2018-04-20 09:52] VITALS: BP 168/105
--- NOTE | 2018-04-20 10:34 | EDM.PDOC ---
ED HPI GENERAL MEDICAL PROBLEM - General Chief Complaint: Respiratory Problem Stated Complaint: RIB PAIN Time Seen by Provider: 04/20/18 10:12 Source of Information: Reports: Patient, RN Notes Reviewed - History of Present Illness INITIAL COMMENTS - FREE TEXT/NARRATIVE: 48-year-old male states he fell out of bed this morning, states his feet got tangled as he was trying to get out of bed and fell onto his left chest striking the floor. he has had left anterior chest pain worse with deep breathing, coughing or any type of motion. He was having enough difficulty he felt he better come in and get this checked out. Left Chest Pain Score (Numeric/FACES): 7 - Related Data Allergies Allergy/AdvReac Type Severity Reaction Status Date / Time Penicillins Allergy Hives Verified 04/20/18 09:47 Home Meds: Home Meds Albuterol Sulfate [Proair Hfa] 1 puff INH ASDIRECTED 06/22/17 [History] Lisinopril 10 mg PO DAILY 06/22/17 [History] Fluticasone Propionate [Flovent HFA] 1 puff INH DAILY 02/13/18 [History] Past Medical History - Past Health History Medical/Surgical History: Denies Medical/Surgical History HEENT History: Reports: Other (See Below) Other HEENT History: Dental complaints Cardiovascular History: Reports: Hypertension Respiratory History: Reports: Asthma Musculoskeletal History: Reports: Back Pain, Chronic, Fracture - Past Surgical History Musculoskeletal Surgical History: Reports: Other (See Below) Other Musculoskeletal Surgeries/Procedures:: back surgery 09/01/16. , knee surgery Social & Family History - Family History Family Medical History: Noncontributory : Reports: Renal Disease/Insufficiency - Tobacco Use Smoking Status *Q: Current Every Day Smoker Years of Tobacco use: 35 Packs/Tins Daily: 1 - Caffeine Use Caffeine Use: Reports: Coffee, Tea - Recreational Drug Use Recreational Drug Use: No - Living Situation & Occupation Living situation: Reports: Single, with Significant Other Occupation: Employed ED ROS GENERAL - Review of Systems Review Of Systems: See Below Constitutional: Reports: No Symptoms HEENT: Reports: No Symptoms Respiratory: Reports: Pleuritic Chest Pain, Cough (Chronic), Other (Left anterior rib pain). Denies: Shortness of Breath, Wheezing Cardiovascular: Reports: Chest Pain (Left anterior rib pain) GI/Abdominal: Denies: Abdominal Pain, Nausea, Vomiting Musculoskeletal: Denies: Neck Pain, Shoulder Pain, Arm Pain, Back Pain Skin: Reports: No Symptoms ED EXAM, GENERAL - Physical Exam Exam: See Below General Appearance: Alert, Mild Distress Head: Atraumatic Neck: Supple Respiratory/Chest: No Respiratory Distress, Lungs Clear, Other (Tender left anterior chest, no visible bruising or swelling) Cardiovascular: Regular Rate, Rhythm GI/Abdominal: Soft, Non-Tender. No: Guarding Extremities: Normal Inspection, Normal Range of Motion Neurological: Alert, Oriented, No Motor/Sensory Deficits Course - Vital Signs Last Recorded V/S: Last Vital Signs Temp 98.8 F 04/20/18 09:50 Pulse 95 04/20/18 09:50 Resp 16 04/20/18 09:50 BP 168/105 H 04/20/18 09:50 Pulse Ox 96 04/20/18 09:50 - Orders/Labs/Meds Orders: Active Orders 24 hr Category Date Time Status Ribs 2V w Chest Lt [CR] Stat Exams 04/20/18 10:16 Taken Meds: Medications Discontinued Medications Generic Name Dose Route Start Last Admin Trade Name Tonia PRN Reason Stop Dose Admin Hydrocodone Bitart/Acetaminophen 1 tab 04/20/18 11:42 04/20/18 11:51 [place] 325-5 Mg PO 04/20/18 11:43 1 tab ONETIME ONE Administration - Re-Assessments/Exams Free Text/Narrative Re-Assessment/Exam: 04/20/18 14:54 Chest x-ray normal, ribs no apparent fracture. He continues to complain of severe pain with breathing. Tylenol he states "Tylenol doesn't work for my back pain, I doubt it will work for this. Given one hydrocodone by mouth. Discharge instructions as documented. Departure - Departure Time of Disposition: 11:31 Disposition: Home, Self-Care 01 Condition: Fair Clinical Impression: Chest wall contusion Qualifiers: Encounter type: initial encounter Laterality: left Qualified Code(s): S20.212A - Contusion of left front wall of thorax, initial encounter - Discharge Information Instructions: Chest Wall Pain, [id number] Referrals: PCP,None [Ordering Only Provider] - Forms: ED Department Discharge Additional Instructions: Avoid heavy lifting, alternate ice packs and heat as needed left chest wall, Advil or ibuprofen 600 mg 3 times daily with food, Tylenol in between doses for extra pain relief as needed, you may take hydrocodone if needed for severe pain , do not take Tylenol and hydrocodone at the same time, do not drive or work when taking hydrocodone. Follow-up clinic if not much better within 1-2 weeks as expected. - My Orders Last 24 Hours: My Active Orders 04/20/18 10:16 Ribs 2V w Chest Lt [CR] Stat - Assessment/Plan Last 24 Hours: My Active Orders 04/20/18 10:16 Ribs 2V w Chest Lt [CR] Stat
[2018-04-20] MEDS ORDERED: Acetaminophen/HYDROcodone 325-5 MG Tab PO ONE (11:42)
--- NOTE | 2018-04-20 17:15 | CR ---
Chest and left ribs: Frontal view of the chest was obtained as well as three views of the left ribs. Comparison: Prior chest CT study of 08/15/17. Heart size and mediastinum are normal. Slight atelectasis is seen within the left lung base. Lungs otherwise are clear. Old healed left clavicle deformity is incidentally noted. No discrete left-sided rib abnormality is appreciated. Impression: 1. Incidental findings. No discrete left-sided rib abnormality is appreciated. Nondisplaced fracture could be missed. Diagnostic code #2
== END 2018-04-20 11:53 | disposition home or self-care (01) ==
LOC: JD.ED 09:35
DX: S20.212A Contusion of left front wall of thorax, initial encounter (principal); I10 Essential (primary) hypertension; F17.210 Nicotine dependence, cigarettes, uncomplicated; Z88.0 Allergy status to penicillin; Z79.899 Other long term (current) drug therapy; W06.XXXA Fall from bed, initial encounter
CPT/HCPCS: 71101; 99284; A9270

== ENCOUNTER 2018-11-12 15:16 | Emergency (ER) | payer BC ==
[2018-11-12 15:29] VITALS: BP 129/84
[2018-11-12] MEDS ORDERED: Aspirin 81 MG Tab.Chew PO ONE (15:40)
[2018-11-12] MEDS ORDERED: Sodium Chloride 0.9% 10 ML Syringe FLUSH PRN (15:40)
[2018-11-12] MEDS ORDERED: HYDROmorphone 1 MG/ML Syringe IVPUSH ONE ×2 (15:41→18:58)
--- NOTE | 2018-11-12 18:01 | EDM.PDOC ---
ED HPI GENERAL MEDICAL PROBLEM - General Chief Complaint: Chest Pain Stated Complaint: CHEST PAIN LIGHT HEADED NUMBNESS IN ARMS AND LEGS Time Seen by Provider: 11/12/18 15:24 Source of Information: Reports: Patient, Family History Limitations: Reports: No Limitations - History of Present Illness INITIAL COMMENTS - FREE TEXT/NARRATIVE: The patient presents with left sided chest pain. This started about 3 hours before arrival. The pain is sharp and it is worse when taking a deep breath. He has some shortness of breath with it. He denies fever, chills or cough. He has no abdominal pain, nausea or vomiting. He has no history of IA, diabetes or hypercholesterolemia. He has a history of hypertension. He does smoke. He had some numbness and tingling in his left arm. He has dizziness when he stands up. Onset: Gradual Duration: Hour(s): (3) Location: Reports: Chest Quality: Reports: Sharp Severity: Moderate Improves with: Reports: Immobilization Worsens with: Reports: Breathing Associated Symptoms: Reports: Chest Pain, Shortness of Breath. Denies: Cough, Fever/Chills, Headaches, Nausea/Vomiting Left Chest Pain Score (Numeric/FACES): 6 - Related Data Allergies Allergy/AdvReac Type Severity Reaction Status Date / Time Penicillins Allergy Hives Verified 11/12/18 15:29 Home Meds: Home Meds Albuterol Sulfate [Proair Hfa] 1 puff INH ASDIRECTED 06/22/17 [History] Lisinopril 10 mg PO DAILY 06/22/17 [History] Past Medical History - Past Health History Medical/Surgical History: Denies Medical/Surgical History HEENT History: Reports: Impaired Vision, Other (See Below) Other HEENT History: Dental complaints Cardiovascular History: Reports: Hypertension Respiratory History: Reports: Asthma Musculoskeletal History: Reports: Back Pain, Chronic, Fracture - Past Surgical History Musculoskeletal Surgical History: Reports: Other (See Below) Other Musculoskeletal Surgeries/Procedures:: back surgery 09/01/16. , knee surgery Social & Family History - Family History Family Medical History: Noncontributory : Reports: Renal Disease/Insufficiency - Tobacco Use Smoking Status *Q: Current Every Day Smoker Years of Tobacco use: 35 Packs/Tins Daily: 1 - Caffeine Use Caffeine Use: Reports: Coffee, Soda, Tea - Recreational Drug Use Recreational Drug Use: Yes - Living Situation & Occupation Living situation: Reports: Single, with Significant Other Occupation: Employed ED ROS GENERAL - Review of Systems Review Of Systems: See Below Constitutional: Reports: No Symptoms HEENT: Reports: No Symptoms Respiratory: Reports: Shortness of Breath. Denies: Cough Cardiovascular: Reports: Chest Pain Endocrine: Reports: No Symptoms GI/Abdominal: Reports: No Symptoms : Reports: No Symptoms Musculoskeletal: Reports: No Symptoms Skin: Reports: No Symptoms ED EXAM, GENERAL - Physical Exam Exam: See Below Exam Limited By: No Limitations General Appearance: Alert, No Apparent Distress Ears: Normal External Exam Nose: Normal Inspection Head: Atraumatic, Normocephalic Neck: Normal Inspection Respiratory/Chest: No Respiratory Distress, Lungs Clear, Normal Breath Sounds Cardiovascular: Regular Rate, Rhythm, No Edema, No Murmur GI/Abdominal: Soft, Non-Tender, No Organomegaly, No Mass Back Exam: Normal Inspection Extremities: Normal Inspection Neurological: Alert, Oriented, No Motor/Sensory Deficits EKG INTERPRETATION EKG Date: 11/12/18 Time: 14:26 Rhythm: NSR Rate (Beats/Min): 95 [place]: Normal P-Wave: Present QRS: Normal ST-T: Normal QT: Normal Course - Vital Signs Last Recorded V/S: Last Vital Signs Temp 98.4 F 11/12/18 15:23 Pulse 98 11/12/18 15:23 Resp 19 11/12/18 15:23 BP 129/84 11/12/18 15:23 Pulse Ox 98 11/12/18 15:23 - Orders/Labs/Meds Orders: Active Orders 24 hr Category Date Time Status Cardiac Monitoring [RC] . DIRECTED Care 11/12/18 15:40 Active EKG Documentation Completion [RC] ASDIRECTED Care 11/12/18 18:10 Active EKG Documentation Completion [RC] STAT Care 11/12/18 15:41 Active Peripheral IV Care [RC] . DIRECTED Care 11/12/18 15:41 Active Chest 1V Frontal [CR] Stat Exams 11/12/18 15:41 Taken Sodium Chloride 0.9% [Saline Flush] Med 11/12/18 15:40 Active 10 ml FLUSH ASDIRECTED PRN Peripheral IV Insertion Adult [OM.PC] Stat Oth 11/12/18 15:40 Ordered EKG 12 Lead [EK] Stat Ther 11/12/18 18:09 Ordered Medication Orders Sodium Chloride (Saline Flush) 10 ml FLUSH ASDIRECTED PRN PRN Reason: Keep Vein Open Last Admin: 11/12/18 16:04 Dose: 10 ml Labs: Laboratory Tests 11/12/18 11/12/18 11/12/18 Range/Units 16:00 16:00 16:00 WBC 7.12 (4.23-9.07) K/mm3 RBC 5.45 (4.63-6.08) M/mm3 Hgb 16.8 (13.7-17.5) gm/L Hct 48.9 (40.1-51.0) % MCV 89.7 (79.0-92.2) fl MCH 30.8 (25.7-32.2) pg MCHC 34.4 (32.2-35.5) g/dl RDW Std Deviation 42.3 (35.1-43.9) fL Plt Count 222 (163-337) K/mm3 MPV 10.1 (9.4-12.3) fl Neut % (Auto) 67.3 (34.0-67.9) % Lymph % (Auto) 23.6 (21.8-53.1) % [place] % (Auto) 6.6 (5.3-12.2) % Eos % (Auto) 2.1 (0.8-7.0) Baso % (Auto) 0.3 (0.1-1.2) % Neut # (Auto) 4.79 (1.78-5.38) K/mm3 Lymph # (Auto) 1.68 (1.32-3.57) K/mm3 [place] # (Auto) 0.47 (0.30-0.82) K/mm3 Eos # (Auto) 0.15 (0.04-0.54) K/mm3 Baso # (Auto) 0.02 (0.01-0.08) K/mm3 D-Dimer, Quantitative 0.22 (0.19-0.50) mg/L Sodium 140 (136-145) mEq/L Potassium 3.7 (3.5-5.1) mEq/L Chloride 104 (98-107) mEq/L Carbon Dioxide 24 (21-32) mEq/L Anion Gap 15.7 H (5-15) BUN 17 (7-18) mg/dL Creatinine 0.9 (0.7-1.3) mg/dL Est Cr Clr Drug Dosing 108.07 mL/min Estimated GFR (MDRD) > 60 (>60) mL/min BUN/Creatinine Ratio 18.9 H (14-18) Glucose 108 H (74-106) mg/dL Calcium 9.0 (8.5-10.1) mg/dL Total Bilirubin 0.5 (0.2-1.0) mg/dL AST 20 (15-37) U/L ALT 23 (16-63) U/L Alkaline Phosphatase 64 (46-116) U/L Troponin I < 0.017 (0.00-0.056) ng/mL Total Protein 7.2 (6.4-8.2) g/dl Albumin 3.9 (3.4-5.0) g/dl Globulin 3.3 gm/dL Albumin/Globulin Ratio 1.2 (1-2) 11/12/18 Range/Units 18:20 WBC (4.23-9.07) K/mm3 RBC (4.63-6.08) M/mm3 Hgb (13.7-17.5) gm/L Hct (40.1-51.0) % MCV (79.0-92.2) fl MCH (25.7-32.2) pg MCHC (32.2-35.5) g/dl RDW Std Deviation (35.1-43.9) fL Plt Count (163-337) K/mm3 MPV (9.4-12.3) fl Neut % (Auto) (34.0-67.9) % Lymph % (Auto) (21.8-53.1) % [place] % (Auto) (5.3-12.2) % Eos % (Auto) (0.8-7.0) Baso % (Auto) (0.1-1.2) % Neut # (Auto) (1.78-5.38) K/mm3 Lymph # (Auto) (1.32-3.57) K/mm3 [place] # (Auto) (0.30-0.82) K/mm3 Eos # (Auto) (0.04-0.54) K/mm3 Baso # (Auto) (0.01-0.08) K/mm3 D-Dimer, Quantitative (0.19-0.50) mg/L Sodium (136-145) mEq/L Potassium (3.5-5.1) mEq/L Chloride (98-107) mEq/L Carbon Dioxide (21-32) mEq/L Anion Gap (5-15) BUN (7-18) mg/dL Creatinine (0.7-1.3) mg/dL Est Cr Clr Drug Dosing mL/min Estimated GFR (MDRD) (>60) mL/min BUN/Creatinine Ratio (14-18) Glucose (74-106) mg/dL Calcium (8.5-10.1) mg/dL Total Bilirubin (0.2-1.0) mg/dL AST (15-37) U/L ALT (16-63) U/L Alkaline Phosphatase (46-116) U/L Troponin I < 0.017 (0.00-0.056) ng/mL Total Protein (6.4-8.2) g/dl Albumin (3.4-5.0) g/dl Globulin gm/dL Albumin/Globulin Ratio (1-2) Meds: Medications Generic Name Dose Route Start Last Admin Trade Name Freq PRN Reason Stop Dose Admin Sodium Chloride 10 ml 11/12/18 15:40 11/12/18 16:04 Saline Flush FLUSH 10 ml ASDIRECTED PRN Administration Keep Vein Open Discontinued Medications Generic Name Dose Route Start Last Admin Trade Name Freq PRN Reason Stop Dose Admin Aspirin 324 mg 11/12/18 15:40 11/12/18 15:55 Aspirin PO 11/12/18 15:41 324 mg ONETIME ONE Administration Hydromorphone HCl 1 mg 11/12/18 15:41 11/12/18 16:02 Dilaudid IVPUSH 11/12/18 15:42 1 mg ONETIME ONE Administration - Re-Assessments/Exams Free Text/Narrative Re-Assessment/Exam: 11/12/18 18:01 I ordered an IV saline lock, EKG, CXR, labs, aspirin and dilaudid. His CXR shows nothing acute. His EKG shows a NSR with no acute changes. His CBC and CMP look good. His troponin is negative. His D-dimer is normal. His chest pain feels better but he still does not feel right. He is light headed when he sits up. This does sound like pleuritic chest pain with pleurisy. I will repeat a troponin and EKG at the 3 hour yuri. 11/12/18 18:57 His repeat EKG looks good. His troponin is negative. He still has some pain. I will give him a dose of dilaudid before he leaves. This looks like pleurisy. He is also getting light headed with it. I feel they are related. Departure - Departure Time of Disposition: 19:00 Disposition: Home, Self-Care 01 Condition: Good Clinical Impression: Pleurisy, Lightheaded Referrals: Saige Aguilar, [employer] [Primary Care Provider] - 1 Week Forms: ED Department Discharge, ED Return to Work/School Form Additional Instructions: Take motrin or aleve for pain. If that does not help, try some hydrocodone. Drink plenty of fluids. Get some rest over the next couple of days. Please return if you are worse. - My Orders Last 24 Hours: My Active Orders 11/12/18 15:40 Cardiac Monitoring [RC] . DIRECTED Sodium Chloride 0.9% [Saline Flush] 10 ml FLUSH ASDIRECTED PRN Peripheral IV Insertion Adult [OM.PC] Stat 11/12/18 15:41 EKG Documentation Completion [RC] STAT Peripheral IV Care [RC] . DIRECTED Chest 1V Frontal [CR] Stat 11/12/18 18:09 EKG 12 Lead [EK] Stat 11/12/18 18:10 EKG Documentation Completion [RC] ASDIRECTED - Assessment/Plan Last 24 Hours: My Active Orders 11/12/18 15:40 Cardiac Monitoring [RC] . DIRECTED Sodium Chloride 0.9% [Saline Flush] 10 ml FLUSH ASDIRECTED PRN Peripheral IV Insertion Adult [OM.PC] Stat 11/12/18 15:41 EKG Documentation Completion [RC] STAT Peripheral IV Care [RC] . DIRECTED Chest 1V Frontal [CR] Stat 11/12/18 18:09 EKG 12 Lead [EK] Stat 11/12/18 18:10 EKG Documentation Completion [RC] ASDIRECTED
--- NOTE | 2018-11-13 07:03 | CR ---
Chest: Portable view of the chest was obtained. Comparison: Prior chest x-ray of 04/20/18. Heart size and mediastinum are normal. Lungs are clear with no acute parenchymal change. Bony structures are grossly intact. Impression: 1. Nothing acute is seen on portable chest x-ray. Diagnostic code #1
== END 2018-11-12 19:16 | disposition home or self-care (01) ==
LOC: JD.ED 15:16
DX: R09.1 Pleurisy (principal); R42 Dizziness and giddiness; I10 Essential (primary) hypertension; F17.210 Nicotine dependence, cigarettes, uncomplicated; Z88.0 Allergy status to penicillin; Z79.899 Other long term (current) drug therapy
CPT/HCPCS: 36415; 71045; 80053; 84484; 85025; 85379; 93005; 96374; 96376; 99285; A9270; J1170; 93010; 99284